=== PATIENT | male | born 1960 | race Caucasian/White ===

== ENCOUNTER 2016-11-03 07:02 | Emergency (ER) | payer BC ==
[2016-11-03 07:21] VITALS: BP 142/88
--- NOTE | 2016-11-03 08:28 | RAD ---
INDICATION: Sciatica. COMPARISON: There are no prior studies available for comparison. TECHNIQUE: 5 views of the lumbar spine were obtained including lateral, oblique, AP and a coned-down lateral view of the lumbar sacral junction. FINDINGS: The vertebra are in normal alignment. No fracture is seen. There is mild disc space narrowing and endplate spurring present at the L1-L2, L2-L3 and L3-L4 levels consistent with mild degenerative disc disease. IMPRESSION: MILD DEGENERATIVE DISC DISEASE.
--- NOTE | 2016-11-03 08:51 | UC ---
Eddi Brewster Angela, [facility] on 11/03/16 at 0734 . Lower Extremity/Ankle HPI - HPI Summary HPI Summary: In Room Note: This pt is a 56 y/o male presenting to [facility] c/o right leg pain x1 week. Pt reports his pain starts in the higher part of his buttocks and radiates on the lateral side down to his calf. He notes his skin is numb, sensitive, and berrios. Pt states that 2 weeks ago he slipped on a hard floor and 1 week ago he had to move his daughter into college. Pt notes that for that past 3-4 night, he has had trouble sleeping. He is unable to bear weight or stand up straight secondary to pain. He has taken 800 mg ibuprofen since yesterday with mild relief. Pt notes that he has been doing some leg exercises with some relief. He has never had this problem before. Pt denies nausea, vomiting, abd pain. 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 PMHx: left knee surgery (arthroscopy) s/p meniscal tear while playing tennis. He notes taking medication for HTN, made him feel light-headed so he stopped taking them. MDs Note: Vital signs stable. 10 pain. Visit history is includes right knee pain, injured right foot, and left meniscal tear. Pt is not on any anti-hypertensive medications. Nurses Note: PT complains of "nerve pain" down right leg that began approx 10/23/16. Pt states he slipped and caught himself on 10/20/16. Pt complains of pain that begins in right low back that goes down right leg thigh area to calf. Pt states pain began in buttock area. Pt states pain is getting worse without relief from OTC meds. - History of Current Complaint Chief Complaint: UCLowerExtremity Stated Complaint: PAIN DOWN LEG Time Seen by Provider: 11/03/16 07:17 Hx Obtained From: Patient Onset/Duration: Lasting Days Pain Intensity: 7 Pain Scale Used: 0-10 Numeric Aggravating Factor(s): Standing Alleviating Factor(s): OTC Meds Able to Bear Weight: No - Allergies/Home Medications Allergies/Adverse Reactions: Allergies Allergy/AdvReac Type Severity Reaction Status Date / Time No Known Allergies Allergy Verified 11/03/16 07:15 Home Medications: Home Medications Ibuprofen [Advil] 800 mg PO Q6HR 11/03/16 [History Confirmed 11/03/16] PMH/Surg Hx/FS Hx/Imm Hx Other Endocrine History: DENIES: Diabetes Other Cardiovascular History: DENIES: cardiac disease - Surgical History Surgical History: Yes Surgery Procedure, Year, and Place: LEFT KNEE CYST REMOVED [facility]. YOUNG CHILD T&A. 2010 COLONOSCOPY/ ENDOSCOPY [facility]. Left Knee Surgery [facility] - Family History Known Family History: Positive: Other - Cancer: mother (fatal) - Social History Occupation: Employed Full-time - gl accountant Alcohol Use: Weekly Alcohol Amount: 1 x weekly Substance Use Type: None Smoking Status (MU): Former Smoker - Immunization History Most Recent Influenza Vaccination: 2015 Review of Systems Constitutional: Negative Skin: Negative Eyes: Negative ENT: Negative Respiratory: Negative Cardiovascular: Negative Gastrointestinal: Negative Genitourinary: Negative Musculoskeletal: Other: - right leg pain, right buttocks pain Neurological: Numbness - burning and sensitive right leg Psychological: Negative All Other Systems Reviewed And Are Negative: Yes Physical Exam Triage Information Reviewed: Yes Vital Signs: Initial Vital Signs Temp 97.3 F 11/03/16 07:07 Pulse 95 11/03/16 07:07 Resp 16 11/03/16 07:07 BP 142/88 11/03/16 07:07 Pulse Ox 99 11/03/16 07:07 Vital Signs Reviewed: Yes - Additional Comments The patient is well-nourished in no acute distress and in no acute pain. The skin is warm and dry and skin color reflects adequate perfusion. HEENT: The head is normocephalic and atraumatic. The pupils are equal and reactive. The conjunctivae are clear and without drainage. Nares are patent and without drainage. Mouth reveals moist mucous membranes and the throat is without erythema and exudate. The external ears are intact. The ear canals are patent and without drainage. The tympanic membranes are intact. Neck is supple with full range of motion and non-tender. There are no carotid bruits. There is no neck vein distension. Respiratory: Chest is non-tender. Lungs are clear to auscultation and breath sounds are symmetrical and equal. Cardiovascular: Hear is regular rate and rhythm. There is no murmur or rub auscultated. There is no peripheral edema and pulses are symmetrical and equal. Abdomen: The abdomen is soft and non-tender. There are normal bowel sounds heard in all four quadrants and there is no organomegaly palpated. Musculoskeletal: Extremities are non-tender with full range of motion. There is good capillary refill. There is no peripheral edema or calf tenderness elicited. RLE: THE PAIN STARTS ON L5 AND GOES AROUND TO THE POSTERIOR THIGH AND SWINGS TO THE LATERAL ASPECT OF THE FIBULA, 2 FINGERBREADTHS OF THE RIGHT LATERAL ANKLE. CALF NOT SWOLLEN; NO EVIDENCE OF DVT. NO SIGNS OF CELLULITIS OR LYMPHANGITIS. Neurological: Patient is alert and oriented to person, place and time. The patient has symmetrical motor strength in all four extremities. THERE ARE NO NEURO DEFICITS. THERE IS MILD DECREASED SENSATION LATERALLY AT THE LEVEL OF THE MID FIBULA ON THE RIGHT. Psychiatric: The patient has an appropriate affect and does not exhibit any anxiety or depression. Diagnostics - Radiology Lumbar Spine XR Xray Interpretation: Positive (See Comments) - IMPRESSION: Mild degenerative disc disease. ED physician has reviewed this radiology report and agrees. Radiology Interpretation Completed By: Radiologist Lower Extremity Course/Dx - Course Course Of Treatment: Medications have been included in the original chart and reviewed.Hypertensive BP reading (>=140/90); patient referred to PCP within 1 day-4 wks for follow-up. On exam, RLE: THE PAIN STARTS ON L5 AND GOES AROUND TO THE POSTERIOR THIGH AND SWINGS TO THE LATERAL ASPECT OF THE FIBULA, 2 FINGERBREADTHS OF THE RIGHT LATERAL ANKLE. THERE NO SIGNS OF CELLULITIS OR LYMPHANGITIS. THERE ARE NO NEURO DEFICITS. THERE IS MILD DECREASED SENSATION LATERALLY AT THE LEVEL OF THE MID FIBULA ON THE RIGHT. Lumbar spine XR shows mild degenerative disc disease. MDM: I discussed with the pt that he needs to check his blood pressure and see a PCP for treatment of hypertension. Pt will be referred to physical therapy for sciatica. - Differential Dx/Diagnosis Provider Diagnoses: Sciatica, right Discharge - Discharge Plan Condition: Stable Disposition: HOME Prescriptions: HYDROcodone/ACETAMIN 5-325 MG* [Randolph 5-325 TAB*] 1 tab PO Q6H #9 tab MDD 4 Patient Education Materials: Sciatica (ED) Referrals: Alexis Mack MD [Primary Care Provider] - Additional Instructions: Your blood pressure reading today was 142/88, indicating HYPERTENSION/ PREHYPERTENSION. Establish with a new primary care provider and follow-up within 4 weeks for blood pressure readings and further evaluation. ~If you can t find a provider, try to check your blood pressure on your own and see if its above 120/80. If so, follow up for further evaluation and treatment. Thank you for helping us improve patient care by filling out the My Point Survey. WE DISCUSSED: 1. you have sciatica. 2. for pain: ibuprofen 600mg with acetaminophen 500mg, up to four times a day. 3. warm moist heat in the morning, ice to area for acute pain. 4. Physical Therapy: i have given you a referral 5. Time should allow this to get better. Re check at any time for muscle problems or change in bowel or bladder habits. 6. I have given you 9 vicodin to help you sleep at night. The documentation as recorded by the Eddi arnold Angela accurately reflects the service I personally performed and the decisions made by me, Josias Corbin MD.
== END 2016-11-03 08:50 | disposition home or self-care (01) ==
LOC: UCEAST 07:02
DX: M54.31 Sciatica, right side (principal); M51.37 Other intervertebral disc degeneration, lumbosacral region; Z87.891 Personal history of nicotine dependence
CPT/HCPCS: 72110; 99212; G0463